=== PATIENT | male | born 1945 | race Caucasian/White ===

== ENCOUNTER → 2020-04-16 12:24 | Outpatient (BNVA) | payer BC, SELFPAY | PROVIDERS: PCP Family Medicine; Visit Provider Physician Assistant ==

== ENCOUNTER → 2020-05-04 08:15 | Outpatient (BNVA) | payer BC, SELFPAY | PROVIDERS: PCP Internal Medicine; Visit Provider Physician Assistant ==

== ENCOUNTER → 2020-05-06 11:17 | Outpatient (BNVA) | payer BC, SELFPAY | PROVIDERS: PCP Internal Medicine; Visit Provider Physician Assistant ==

== ENCOUNTER 2020-05-10 08:27 | Outpatient (REF) | payer BC, SELFPAY ==
--- NOTE | 2020-05-10 13:25 | MHC.AU.AHA ---
Adult Audiological Evaluation Date of Visit: 05/10/20 Reason for Appointment: Audiological evaluation to monitor the status of Mr. Turner's hearing loss. He has a longstanding history of bilateral hearing loss and hearing aid use. The only change to his medical history is a persistent rash. He denies any significant changes to his hearing. 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 Ear History: History of Ear Wax Buildup: Both Ears Medical History: Medical History: Unremarkable Medical History Hearing Instrument History- Right Ear: Top Spotter: Phonak Model: Zignals B90-P BTE Serial Number: [id number] Battery Size: 13 Repair Warranty: 07/09/2020 Loss and Damage Warranty: 07/09/2020 Dispensed By: [facility] Date of Fittin05/15/2016 Hearing Instrument History- Left Ear: Top Spotter: Phonak Model: Zignals B90-P BTE Serial Number: [id number] Battery Size: 13 Warranty: 07/09/2020 Loss and Damage Warranty: 07/09/2020 Dispensed By: [facility] Date of Fittin05/15/2016 Otoscopy: Right Ear: Unremarkable Left Ear: Partially occluded with cerumen Tympanometry: Tympanometry performed due to: Conductive component found in audiometric results Right Ear: Normal Middle Ear System (Type A), Double-Peaked Tympanogram Left Ear: Normal Middle Ear System (Type A) Hearing Evaluation: Transducer(s) Used: Insert Earphones, Bone Conduction Method: Conventional Audiometry Stimuli Used: Pure Tones Right Ear: Description of Hearing: Severe sloping to profound mixed hearing loss from 250-8000 Hz. Left Ear: Description of Hearing: Moderately severe to severe sensorineural hearing loss from 250-8000 Hz. Speech Recognition Threshold (SRT): Method Used: Monitored Live Voice Stimuli Used: Spondee Words Right Ear: 75 dBHL Left Ear: 70 dBHL Word Discrimination: Method: Monitored Live Voice, Recorded Lists Word Lists Used: NU-6 Right Ear: Recorded: 40% at 100 dBHL, 28% at 90 dBHL MLV: 52% at 90 dBHL Left Ear: Recorded: 56% at 90 dBHL MLV: 80% at 90 dBHL Comparison: Compared to the most recent evaluation: Thresholds have decreased bilaterally. Word discrimination scores have decreased bilaterally. Compared to most recent evaluation: Previous word discrimination scores were 96% at 100 dBHL in the right ear and 84% at 95 dBHL in the left ear. Recommendations: Audiological re-evaluation in one year. Referral to Ear, Nose, and Throat is recommended. Hearing aid maintenance performed today. Hearing aid(s) reprogrammed with updated test results. Recommend ENT referral due to significant decrease in word discrimination scores compared to 2020. Diagnosis: Primary Diagnosis: H90.3 Bilateral Sensorineural Hearing Loss Services Performed: Comprehensive Audiological Evaluation (CPT 82464) Tympanometry (CPT 31161) Signature: Provider: Oleg Kiser, CCC-A
== END 2020-05-10 08:28 | disposition home or self-care (01) ==
LOC: HO.SH 08:27
PROVIDERS: Visit Provider Internal Medicine
DX: H90.3 Sensorineural hearing loss, bilateral (principal)
CPT/HCPCS: 92557; 92567

== ENCOUNTER 2020-05-21 08:41 | Outpatient (REF) | payer SELFPAY | END 2020-05-21 08:42 | disposition home or self-care (01) | LOC: HO.HAP 08:41 | PROVIDERS: Visit Provider Internal Medicine | DX: Z13.89 Encounter for screening for other disorder (principal) ==

== ENCOUNTER → 2020-05-27 11:03 | Outpatient (BNVA) | payer BC, SELFPAY | PROVIDERS: PCP Internal Medicine; Visit Provider Dietitian, Registered | DX: E66.9 Obesity, unspecified (principal) | CPT/HCPCS: 97802 ==

== ENCOUNTER 2020-07-15 12:18 | Outpatient (REF) | payer SELFPAY | END 2020-07-15 12:19 | disposition home or self-care (01) | LOC: HO.HAP 12:18 | PROVIDERS: Visit Provider Internal Medicine | DX: Z13.89 Encounter for screening for other disorder (principal) ==

== ENCOUNTER → 2020-11-05 14:19 | Outpatient (BNVA) | payer BC, SELFPAY | PROVIDERS: PCP Internal Medicine; Visit Provider Physician Assistant ==

== ENCOUNTER 2021-02-18 11:32 | Outpatient (REF) | payer SELFPAY ==
--- NOTE | 2021-02-18 12:42 | MHC.AU.HFU ---
Hearing Instrument Follow-Up- Binaural Date of Visit: 02/18/21 Right Ear: Singing Teacher: Phonak Model: Bolero B90-P BTE Serial Number: [id number] Repair Warranty: 07/09/2020 Battery Size: 13 TubinTT double Type of Mold: Hilaria skeleton mold Type of Wax Guard: Dispensed By: [facility] Date of Fittin05/15/2016 Left Ear: Singing Teacher: Phonak Model: Bolero B90-P BTE Serial Number: [id number] Repair Warranty: 07/09/2020 Battery Size: 13 TubinTT double Type of Mold: Hilaria skeleton mold Type of Wax Guard: Dispensed By: [facility] Date of Fittin05/15/2016 Follow-Up Summary: Patient reports sound quality of aids has become poorer over the past few months. Otoscopy shows only a small amount of non-occluding cerumen bilaterally which would likely NOT affect sound quality. Listening check showed right aid clearer than left. Changed tubing (Used tube locks today, in past used double bend TT), cleaned microphones and contacts of both aids. Listening check, noticed improved sound quality, particularly for the left aid and patient reports improvement at least in the office. 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 The timing of the change in speech discrimination coincides with the medical changes. Patient asked about cochlear implants as his is interested to see if he is a candidate, and showed him pictures and discussed the process. Recommendations:Patient is scheduled to receive a reminder card for Janae re-evaluation. Advised patient if he continues to experience more difficulty after the cleaning, he should have an earlier hearing test. Diagnosis Code(s): Primary Diagnosis: H90.3 Bilateral Sensorineural Hearing Loss Signature: Provider: Oleg Byrne, [facility]
== END 2021-02-18 11:33 | disposition home or self-care (01) ==
LOC: HO.HAP 11:32
PROVIDERS: Visit Provider Internal Medicine
DX: Z13.89 Encounter for screening for other disorder (principal)

== ENCOUNTER 2021-05-20 07:58 | Outpatient (REF) | payer BC, SELFPAY ==
--- NOTE | 2021-06-02 12:06 | MHC.AU.AHA ---
Adult Audiological Evaluation Date of Visit: 05/20/21 Trestle Builder Used: Not Applicable Reason for Appointment: Audiologic re-evaluation due to increased hearing difficulties. Mauricio has a long-standing history of hearing loss, right ear greater than left. When tested in 2020, Mauricio's speech discrimination ability significantly decreased, right ear poorer than left. Since that test, he was diagnosed with a Metathyroid problem. Mauricio was on a immunosupressant medication and then had surgery to remove 3 Parathyroid glands in March 2021. Previous Hearing Test Results: 05/10/2020 [facility] Right ear - Severe to profound mixed hearing loss with 40% speech understanding at 100 dB HL and 28% at 90 dB HL Left ear - Severe to profound sensorineural hearing loss with 56% speech discrimination ability at 90 dB HL Ear History: History of Ear Wax Buildup: Both Ears Medical History: Medical History: Heart Problems, High Blood Pressure, Thyroid Disease Medication List: Cellcept, Flecainide, Hydrochlorothiazide, Metoprolol, Xarelto Hearing Instrument History- Right Ear: Bush Hog Operator: [employer] Model: Telematik90-P CoubicE Serial Number: [id number] Battery Size: 13 Repair Warranty: 07/09/2020 Loss and Damage Warranty: 07/09/2020 Dispensed By: [facility] Date of Fittin05/15/2016 Hearing Instrument History- Left Ear: Bush Hog Operator: [employer] Model: Playviews B90-P CoubicE Serial Number: [id number] Battery Size: 13 Warranty: 07/09/2020 Loss and Damage Warranty: 07/09/2020 Dispensed By: [facility] Date of Fittin05/15/2016 Otoscopy: Right Ear: Non-occluding cerumen Left Ear: Non-occluding cerumen Tympanometry: Not performed at today's visit as previous results have indicated normal middle ear function bilaterally. Hearing Evaluation: Transducer(s) Used: Insert Earphones Bone Conduction Method: Conventional Audiometry Stimuli Used: Pure Tones Right Ear: Description of Hearing: Severe to profound mixed hearing loss. Left Ear: Description of Hearing: Severe to profound sensorineural hearing loss. Speech Recognition Threshold (SRT): Method Used: Monitored Live Voice Stimuli Used: Spondee Words Right Ear: 75 dB HL Left Ear: 60 dB HL Word Discrimination: Method: Recorded Lists Word Lists Used: NU-6 Right Ear: 48% at 95 dB HL Left Ear: 80% at 90 dB HL Most Comfortable Level (MCL): Right Ear: 95 dB HL Left Ear: 90 dB HL Comparison: Compared to the most recent evaluation: Hearing is stable. Compared to most recent evaluation: Speech discrimination ability has improved for both ears; although, the right ear understanding continues to be poorer compared to the left ear. The changing speech discrimination over the past year may relate to the thyroid disorder and following treatment, speech understanding improved compared to 2020. However compared to 2020 results, speech clarity is still reduced for both ears. Recommendations: Audiological re-evaluation in one year. Will send a reminder card. Hearing aid maintenance performed today. Hearing aid(s) reprogrammed with updated test results and adjustments to try to improve clarity of speech. Diagnosis: Primary Diagnosis: H90.3 Bilateral Sensorineural Hearing Loss Services Performed: Comprehensive Audiological Evaluation (CPT 80992) Signature: Provider: Oleg Byrne, CCC-A
== END 2021-05-20 07:59 | disposition home or self-care (01) ==
LOC: HO.SH 07:58
PROVIDERS: Visit Provider Internal Medicine
DX: Z01.118 Encounter for examination of ears and hearing with other abnormal findings (principal); H90.3 Sensorineural hearing loss, bilateral
CPT/HCPCS: 92557

== ENCOUNTER 2021-06-13 09:16 | Outpatient (REF) | payer SELFPAY | END 2021-06-13 09:17 | disposition home or self-care (01) | LOC: HO.HAP 09:16 | PROVIDERS: Visit Provider Internal Medicine | DX: Z13.89 Encounter for screening for other disorder (principal) ==

== ENCOUNTER 2021-10-11 09:27 | Outpatient (REF) | payer SELFPAY ==
--- NOTE | 2021-10-11 11:48 | MHC.AU.HFU ---
Hearing Instrument Follow-Up- Binaural Date of Visit: 10/11/21 Right Ear: Actuary: Phonak Model: Bolero B90-P BTE Serial Number: [id number] Repair Warranty: 07/09/2020 Loss and Damage Warranty: 07/09/2020 Battery Size: 13 Tubing: Tube Lock Type of Mold: Hilaria skeleton mold Dispensed By: [facility] Date of Fittin05/15/2016 Left Ear: Actuary: Phonak Model: Bolero B90-P BTE Serial Number: [id number] Repair Warranty: 07/09/2020 Loss and Damage Warranty: 07/09/2020 Battery Size: 13 Tubing: Tube Lock Type of Mold: Hilaria skeleton mold Dispensed By: [facility] Date of Fittin05/15/2016 Follow-Up Summary: Patient reports he is having trouble hearing with the right aid and does not hear the start-up chime. Listening check shows the right aid is amplifying clearly and can hear the start-up chime. Changed tubing of both aids and cleaned microphones. Otoscopy shows right tympanic membrane is retracted and some redness around the outer left side . Patient reports he had significant cold symptoms last week. Discussed how the hearing may decrease with congestion. If problems persists, audiologic re-evaluation should be considered. Diagnosis Code(s):Primary Diagnosis: H90.3 Bilateral Sensorineural Hearing Loss Signature:Provider: Carol Byrne, [facility]
== END 2021-10-11 09:28 | disposition home or self-care (01) ==
LOC: HO.HAP 09:27
PROVIDERS: Visit Provider Internal Medicine
DX: Z46.1 Encounter for fitting and adjustment of hearing aid (principal); H90.3 Sensorineural hearing loss, bilateral
CPT/HCPCS: 99499

== ENCOUNTER 2022-01-26 10:44 | Outpatient (REF) | payer SELFPAY | END 2022-01-26 10:45 | disposition home or self-care (01) | LOC: HO.HAP 10:44 | PROVIDERS: Visit Provider Internal Medicine | DX: Z46.1 Encounter for fitting and adjustment of hearing aid (principal); H90.3 Sensorineural hearing loss, bilateral; H61.23 Impacted cerumen, bilateral | CPT/HCPCS: 92700 ==

== ENCOUNTER 2022-02-07 15:22 | Outpatient (REF) | payer SELFPAY ==
--- NOTE | 2022-02-08 08:49 | MHC.AU.HA3 ---
Hearing Instrument Follow-Up- Binaural Date of Visit: 02/07/22 Right Ear: Yahir, Model, Color, Serial Number: Keith [id number] P SN: [id number] Color: Silver Cole Tax Services Intern Repair Warranty: 07/09/2020 Tax Services Intern Loss and Damage Warranty: 07/09/2020 [facility] Service Plan: Battery Size: 13 Earmold/Dome/CShell/SlimTip:Hilaria skeleton mold Dispensed By: [facility] Date of Fittin05/15/2016 Left Ear: Yhair, Model, Color, Serial Number: Keith [id number] P SN: [id number] Color: Silver Cole Tax Services Intern Repair Warranty: 07/09/2020 Tax Services Intern Loss and Damage Warranty: 07/09/2020 [facility] Service Plan: Battery Size: 13 Earmold/Dome/CShell/SlimTip: Hilaria skeleton mold Dispensed By: [facility] Date of Fittin05/15/2016 Follow-Up Summary: Mauricio reported that his right hearing was . Upon inspection, the hearing aid was working; however, it was significantly weaker than expected for his hearing loss and weaker than the left hearing aid. Cleaned and retubed both hearing aids and ear molds with no improvement in sound quality of the right hearing aid. Discussed options including sending right hearing aid for logistics supply officer repair or purchasing new hearing aids due to age of current pair. Mauricio opted to send the right hearing aid for repair knowing the device is six years old. [facility] repair [facility] as hearing aid is over five years old and then call Mauricio to provide [place] quote. Programmed a loaner to use in the meantime. Upon programming, Mauricio reported the loaner hearing aid still sounded weak although much better than his personal right hearing aid. Discussed possibility of change in hearing and need for updated hearing test. Recommendations: Mauricio will obtain a doctor's order for an updated hearing evaluation due to a suspected change in hearing in his right ear. Diagnosis Code(s):Primary Diagnosis: H90.A22 SNHL, Unilatearl, Left Ear, W/Restricted Contralateral Hearing Secondary Diagnosis: H90.A31 Mixed HL, Unilateral Right Ear, W/Restricted Contralateral Signature: Provider: Kiah Tan, [facility]
== END 2022-02-07 15:23 | disposition home or self-care (01) ==
LOC: HO.HAP 15:22
PROVIDERS: Visit Provider Internal Medicine
DX: Z13.89 Encounter for screening for other disorder (principal)

== ENCOUNTER 2022-02-27 13:55 | Outpatient (REF) | payer SELFPAY ==
--- NOTE | 2022-02-27 14:37 | MHC.AU.HA3 ---
Hearing Instrument Follow-Up- Binaural Date of Visit: 02/27/22 Right Ear: Yahir, Model, Color, Serial Number: Keith [id number] P SN: [id number] Color: Silver Cole Hand Candle Dipper Repair Warranty: 08/16/2022 Hand Candle Dipper Loss and Damage Warranty: 07/09/2020 Battery Size: 13 Earmold/Dome/CShell/SlimTip:Hilaria skeleton mold Dispensed By: [facility] Date of Fittin05/15/2016 Left Ear: Yahir, Model, Color, Serial Number: Keith [id number] P SN: [id number] Color: Silver Cole Hand Candle Dipper Repair Warranty: 07/09/2020 Hand Candle Dipper Loss and Damage Warranty: 07/09/2020 Battery Size: 13 Earmold/Dome/CShell/SlimTip: Hilaria skeleton mold Dispensed By: [facility] Date of Fittin05/15/2016 Follow-Up Summary: Mauricio returned to pickle pumper his repaired right hearing aid. Connected to left hearing aid via [employer] programming software. Mauricio noted significant improvement in sound quality. Returned loaner. Briefly discussed new hearing aids. Provided brochure for Phonak Lumity hearing aids at Mauricio's request but discussed only in [id number]-ear style. Mauricio will research [employer]'s newest [id number] hearing aids as well (e.g., Sue Lu[place]) and will schedule an updated hearing evaluation if concerns related to a suspected change in hearing in his right ear persist or he is ready to pursue new hearing aids. Recommendations: Hearing instrument maintenance in 6 months, or sooner if needed. Recommendations (Other): Mauricio will obtain a doctor's order for an updated hearing evaluation if concerns related to a suspected change in hearing in his right ear persist. Diagnosis Code(s):Primary Diagnosis: H90.A22 SNHL, Unilatearl, Left Ear, W/Restricted Contralateral Hearing Secondary Diagnosis: H90.A31 Mixed HL, Unilateral Right Ear, W/Restricted Contralateral Signature: Provider: Kiah Tan, [facility]
== END 2022-02-27 13:56 | disposition home or self-care (01) ==
LOC: HO.HAP 13:55
PROVIDERS: Visit Provider Internal Medicine
DX: Z46.1 Encounter for fitting and adjustment of hearing aid (principal); H90.A22 Sensorineural hearing loss, unilateral, left ear, with restricted hearing on the contralateral side
CPT/HCPCS: V5014

== ENCOUNTER 2022-07-25 09:21 | Outpatient (REF) | payer SELFPAY | END 2022-07-25 09:22 | disposition home or self-care (01) | LOC: HO.HAP 09:21 | PROVIDERS: Visit Provider Internal Medicine | DX: Z13.89 Encounter for screening for other disorder (principal) ==

== ENCOUNTER 2023-01-18 14:14 | Outpatient (REF) | payer BC, SELFPAY | END 2023-01-18 14:15 | disposition home or self-care (01) | LOC: HO.SH 14:14 | PROVIDERS: Visit Provider Internal Medicine | DX: Z01.118 Encounter for examination of ears and hearing with other abnormal findings (principal); H90.3 Sensorineural hearing loss, bilateral | CPT/HCPCS: 92557 ==

== ENCOUNTER 2023-01-18 15:28 | Outpatient (REF) | payer SELFPAY ==
--- NOTE | 2023-01-19 07:33 | MHC.AU.HA3 ---
Hearing Instrument Follow-Up- Binaural Date of Visit: 01/18/23 Right Ear: Yahir, Model, Color, Serial Number: Keith [id number] P SN: [id number] Color: Silver Cole Bacteriology Research Assistant Repair Warranty: 08/16/2022 Bacteriology Research Assistant Loss and Damage Warranty: 07/09/2020 Battery Size: 13 Earmold/Dome/CShell/SlimTip:Hilaria skeleton mold Dispensed By: [facility] Date of Fittin05/15/2016 Left Ear: Yahir, Model, Color, Serial Number: Keith [id number] P SN: [id number] Color: Silver Cole Bacteriology Research Assistant Repair Warranty: 07/09/2020 Bacteriology Research Assistant Loss and Damage Warranty: 07/09/2020 Battery Size: 13 Earmold/Dome/CShell/SlimTip: Hilaria skeleton mold Dispensed By: [facility] Date of Fittin05/15/2016 Follow-Up Summary: Mauricio returned for routine hearing aid maintenance following updated hearing test. Cleaned hearing aids and ear molds. Vacuumed microphones. Ran through dehumidifier. Replaced tubing. Discussed new hearing aids due to age of current pair. Mauricio inquired about a cochlear implant - Discussed borderline candidacy and would need full CI evaluation at [facility] to determine eligibility. Provided contact information for [facility]. Mauricio will schedule a CI evaluation/consultation to obtain more information about CIs. If he decides to pursue new hearing aids instead, he will schedule a hearing aid consultation here following the CI evaluation. He knows his hearing test is valid for six months. Recommendations: Hearing instrument follow-up or maintenance as needed. Please contact our clinic with any questions or concerns. Diagnosis Code(s): Primary Diagnosis: H90.3 Bilateral Sensorineural Hearing Loss Signature: Provider: Kiah Tan, [facility]
== END 2023-01-18 15:29 | disposition home or self-care (01) ==
LOC: HO.HAP 15:28
PROVIDERS: Visit Provider Internal Medicine
DX: Z46.1 Encounter for fitting and adjustment of hearing aid (principal); H90.3 Sensorineural hearing loss, bilateral
CPT/HCPCS: 92593

== ENCOUNTER 2023-03-09 13:43 | Outpatient (REF) | payer SELFPAY ==
--- NOTE | 2023-03-12 08:39 | MHC.AU.HA1 ---
Hearing Aid Evaluation Date of Visit: 03/09/23 Historical Information: Description of Hearing: Severe to profound sensorineural hearing loss bilaterally, right worse than left Current personal amplification information, if applicable: Phonak Bolero B90-p Summary: Mauricio visited with his son Will to discuss new hearing aid options. He states he was seen at [facility] for a CI consult but does not feel he is ready for implants yet, and would like to see if new hearing aids help before seriously considering the surgery. He is currently exploring his options and researching new technology. He is interested in staying with Phonak, as he has done well with them in the past, but is also curious about other manufacturers as his neighbor has hearing aids she loves that are another company. Discussed Phonak and Oticon options, as he would need to go to a UP BTE to have a disposable battery for Phonak, or stay with P and get a rechargeable aid, or switch to Oticon for a 13 BTE. A UP BTE would be appropriate for his hearing loss, so this would likely be the aid he would pursue. Mauricio wants to stick with the 90 level, and says he would probably choose to keep his current earmolds as they are only 2 years old, and purchase new ones down the road as this would expedite the fitting process. He plans to discuss things with his son and return if/when ready. Hearing Aid Prescription: Based on the individual?s shared listening needs, communication environments, dexterity, desire for connectivity, and personal preferences, the following prescription for amplification has been made: Right ear: Make, Model, Color: Phonak Bolero B90 P SN: [id number] Color: Silver Cole Battery Size: 13 Mold Closer Helper/Slim Tube: Type of Earmold/Dome/CShell/SlimTip: Hilaria skeleton mold Left ear: Left ear prescription to be same as Right Hearing Aid above: Make, Model, Color: Phonak Bolero B90 P SN: [id number] Color: Silver Cole Battery Size: 13 Mold Closer Helper/Slim Tube: Type of Earmold/Dome/CShell/SlimTip: Hilaria skeleton mold Action Taken/Action Needed: Comments: Call if/when ready to pursue new technology. Primary Diagnosis: H90.3 Bilateral Sensorineural Hearing Loss Signature: Provider: Oleg Brown, CCC-A
== END 2023-03-09 13:44 | disposition home or self-care (01) ==
LOC: HO.HAP 13:43
PROVIDERS: Visit Provider Internal Medicine
DX: Z13.89 Encounter for screening for other disorder (principal)